=== PATIENT | male | born 1985 | race Hispanic/Latino ===

== ENCOUNTER 2019-04-16 12:22 | Emergency (ER) | payer BC ==
[~2019-04-16] VITALS: Ht 170.2 cm; Wt 78.0 kg
--- OUTSIDE RECORDS SUMMARY | 2019-04-16 12:26 | XMS REPORT | Continuity of Care Document ---
Author Author [facility] Organization [facility] Address Unknown Phone Unavailable Care Team Providers Care Public Health Training Assistant Name Role Phone Lela Dennison MD, Jaya SAMUELS Unavailable Insurance Providers Payer name Policy type / Coverage type Policy ID Covered alliance party ID Policy Rooney *SELF PAY* SLIDING FEE SCHEDULE - DISCOUNT Encounters Encounter Performer Location Date Lab Report Jaya Vogel Jr., MD [facility] Aug 26, 2013 Problems Problem Effective Dates Problem Status FATIGUE Aug 25, 2013 Active HEMATOMA Aug 25, 2013 Active Procedures Date Description Comments Aug 25, 2013 smoking status never smoker Vital Signs Date Description Test Result Aug 25, 2013 weight E&M - 3141-9 WEIGHT 163 lb Aug 25, 2013 height E&M - 8302-2 HEIGHT 67 in Aug 25, 2013 temperature E&M TEMPERATURE 97.7 deg f Aug 25, 2013 pulse rate E&M - 8867-4 PULSE RATE 57 /min Aug 25, 2013 blood pressure, systolic - 8480-6 BP SYSTOLIC 122 mm Hg Aug 25, 2013 blood pressure, diastolic - 8462-4 BP DIASTOLIC 74 mm Hg Results Date Description Test Name Value Reference Interpretation Status Aug 26, 2013 hemoglobin, blood HGB 14.9 g/dL 14.0-18.0 Aug 26, 2013 hematocrit, blood HCT 44.6 % 42.0-54.0 Aug 26, 2013 platelet count PLATELETS 217 K/CMM /mm3 133-450 Aug 26, 2013 hemoglobin, blood HGB 14.9 g/dL 14.0-18.0 Aug 26, 2013 hematocrit, blood HCT 44.6 % 42.0-54.0 Aug 26, 2013 platelet count PLATELETS 217 K/CMM /mm3 133-450 Aug 26, 2013 sodium, serum SODIUM 139 MEQ/L mmol/L 135-145 Aug 26, 2013 potassium, serum POTASSIUM 3.8 MEQ/L mmol/L 3.5-5.1 Aug 26, 2013 creatinine, serum CREATININE 0.9 mg/dL 0.5-1.4 Aug 26, 2013 urea nitrogen, blood BUN 13 mg/dL 7-Aug 26, 2013 urea nitrogen/creatinine ratio, serum BUN/CREAT 14 null 6-25 Aug 26, 2013 albumin, serum ALBUMIN 4.2 g/dL 3.5-5.0 Aug 26, 2013 calcium, serum CALCIUM 9.4 mg/dL 8.5-10.5 Aug 26, 2013 alanine aminotransferase (SGPT), serum SGPT (ALT) 35 U/L 0-65 Aug 26, 2013 aspartate aminotransferase (SGOT), serum SGOT (AST) 15 U/L 0-37 Aug 26, 2013 alkaline phosphatase, serum ALK PHOS 129 U/L 39-136 Aug 26, 2013 thyroid stimulating hormone, serum TSH 0.919 uIU/mL 0.360-3.740 Aug 26, 2013 sodium, serum SODIUM 139 MEQ/L mmol/L 135-145 Aug 26, 2013 potassium, serum POTASSIUM 3.8 MEQ/L mmol/L 3.5-5.1 Aug 26, 2013 creatinine, serum CREATININE 0.9 mg/dL 0.5-1.4 Aug 26, 2013 urea nitrogen, blood BUN 13 mg/dL -Aug 26, 2013 urea nitrogen/creatinine ratio, serum BUN/CREAT 14 null 6-25 Aug 26, 2013 albumin, serum ALBUMIN 4.2 g/dL 3.5-5.0 Aug 26, 2013 calcium, serum CALCIUM 9.4 mg/dL 8.5-10.5 Aug 26, 2013 alanine aminotransferase (SGPT), serum SGPT (ALT) 35 U/L 0-65 Aug 26, 2013 aspartate aminotransferase (SGOT), serum SGOT (AST) 15 U/L 0-37 Aug 26, 2013 alkaline phosphatase, serum ALK PHOS 129 U/L 39-136 Aug 26, 2013 thyroid stimulating hormone, serum TSH 0.919 uIU/mL 0.360-3.740
--- OUTSIDE RECORDS SUMMARY | 2019-04-16 12:26 | XMS REPORT | Continuity of Care Document ---
Author Author [facility] Organization [facility] Address Unknown Phone Unavailable Care Team Providers Care Hydroelectric Plant Mechanical Engineer Name Role Phone Lela Dennison MD, Jaya SAMUELS Unavailable Insurance Providers Payer name Policy type / Coverage type Policy ID Covered green party ID Policy Rooney *SELF PAY* SLIDING FEE SCHEDULE - DISCOUNT *SELF [place]* [place] *SELF PAY* SLIDING FEE SCHEDULE - DISCOUNT *SELF PAY* SLIDING FEE SCHEDULE - DISCOUNT *SELF PAY* SLIDING FEE SCHEDULE - DISCOUNT *SELF PAY* SLIDING FEE SCHEDULE - DISCOUNT *SELF PAY* SLIDING FEE SCHEDULE - DISCOUNT *SELF PAY* SLIDING FEE SCHEDULE - DISCOUNT Encounters Encounter Performer Location Date Office Visit Jaya Vogel Jr., MD [facility] Sep 07, 2014 Problems Problem Effective Dates Problem Status FATIGUE Aug 25, 2013 Active HEMATOMA Aug 25, 2013 Active DISORDERS OF BILIRUBIN EXCRETION Sep 01, 2013 Active FEVER UNSPECIFIED Sep 07, 2014 Active Procedures Date Description Comments Aug 25, [...] - 8462-4 BP DIASTOLIC 74 mm Hg Sep 07, 2014 weight E&M - 3141-9 WEIGHT 169 lb Sep 07, 2014 blood pressure, systolic - 8480-6 BP SYSTOLIC 119 mm Hg Sep 07, 2014 blood pressure, diastolic - 8462-4 BP DIASTOLIC 72 mm Hg Sep 07, 2014 temperature E&M TEMPERATURE 99.8 deg f Sep 07, 2014 pulse rate E&M - 8867-4 PULSE RATE 79 /min Results Date Description Test Name Value Reference [...]
--- OUTSIDE RECORDS SUMMARY | 2019-04-16 12:26 | XMS REPORT | Continuity of Care Document ---
Author Author [facility] Organization [facility] Address Unknown Phone Unavailable Care Team Providers Care Program Checker Name Role Phone Lela Dennison MD, Jaya SAMUELS Unavailable Insurance Providers Payer name Policy type / Coverage type Policy ID Covered democrat ID Policy Rooney *SELF PAY* SLIDING FEE [...] Date Office Visit Jaya Vogel Jr., MD [facility] Feb 08, 2015 Problems Problem Effective Dates Problem Status FATIGUE Aug 25, 2013 Active HEMATOMA Aug 25, 2013 Active DISORDERS OF BILIRUBIN EXCRETION Sep 01, 2013 Active FEVER UNSPECIFIED Sep 07, 2014 Inactive OTHER SPECIFIED VIRAL INFECTION IN CONDITIONS CLASSIFIED ELSEWHERE AND OF UNSPECIFIED SITE Feb 08, 2015 Active Procedures Date Description Comments Aug 25, 2013 smoking status never smoker Feb 08, 2015 smoking status Never smoker Medications Medication Instructions Start Date Status PREDNISONE 10 MG TABS 3 tablet daily Feb 08, 2015 Active Vital Signs Date Description Test Result Aug [...] E&M - 8867-4 PULSE RATE 79 /min Feb 08, 2015 weight E&M - 3141-9 WEIGHT 172 lb Feb 08, 2015 temperature E&M TEMPERATURE 100.7 deg f Feb 08, 2015 respiratory rate E&M - 9279-1 RESP RATE 16 /min Feb 08, 2015 blood pressure, systolic - 8480-6 BP SYSTOLIC 107 mm Hg Feb 08, 2015 blood pressure, diastolic - 8462-4 BP DIASTOLIC 75 mm Hg Feb 08, 2015 pulse rate E&M - 8867-4 PULSE RATE 83 /min Results Date Description Test Name Value [...] 2013 urea nitrogen, blood BUN 13 mg/dL 7-22 Aug 26, 2013 urea nitrogen/creatinine ratio, serum BUN/CREAT [...] 2013 urea nitrogen, blood BUN 13 mg/dL 7-22 Aug 26, 2013 urea nitrogen/creatinine ratio, serum BUN/CREAT [...]
--- OUTSIDE RECORDS SUMMARY | 2019-04-16 12:26 | XMS REPORT | Continuity of Care Document ---
Author Author [facility] Interface Address Unknown Phone Unavailable Problems Problem Status Onset Date Classification Date Reported Comments Source Discharge Diagnosis: Viral illness 11/13/2017 11/16/2017 [facility] CHILLS Active 11/11/2017 [facility] ABDOMINAL PAIN, RIGHT UPPER QUADRANT Active 06/15/2015 Condition 06/15/2015 [facility] Right upper quadrant pain<sup>6</sup> Active 06/15/2015 Problem 06/11/2018 Data migrated from [facility] on 07/05/15. [facility] ABNORMAL BLOOD CHEMISTRY, NOS Inactive 02/22/2015 Condition 06/15/2015 [facility] ELEVATED LIVER ENZYMES Active 02/22/2015 Condition 06/15/2015 [facility] FREQUENCY, URINARY Inactive 02/20/2015 Condition 06/15/2015 [facility] ABDOMINAL BLOATING Inactive 02/20/2015 Condition 06/15/2015 [facility] Abdominal bloating<sup>1</sup> Active 02/20/2015 Problem 06/11/2018 Data migrated from [facility] on 06/07/15. [facility] Finding of frequency of urination<sup>4</sup> Active 02/20/2015 Problem 06/11/2018 Data migrated from [facility] on 06/07/15. 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 [facility] FATIGUE Active 08/25/2013 Condition 06/15/2015 [facility] HEMATOMA Inactive 08/25/2013 Condition 06/15/2015 [facility] Fatigue<sup>3</sup> Active 08/25/2013 Problem 06/11/2018 Data migrated from [facility] on 05/02/15. [facility] Hematoma<sup>5</sup> Active 08/25/2013 Problem 06/11/2018 Data migrated from [facility] on 05/02/15. [facility] Final: Pain in thoracic spine 05/09/2017 [facility] Medications Medication Details Route Status Patient Instructions Ordering Provider Order Date Source albuterol 90 mcg/inh inhalation aerosol 2 puff, INHALATION, TID, # 51 mg, 2 Refill(s), Pharmacy: [id number] Active 03/05/2018 [facility] Alprazolam 0.5 MG Oral Tablet 0.5 mg=1 tab, PO, Daily, PRN Anxiety, X 30 day, # 24 tab, 0 Refill(s) No Longer Active 01/08/2018 [facility] Ketorolac 30 mg, Route: IVP, Drug form: INJ, ONCE, Dosing Weight 79.545, kg, Priority: STAT, Start date: 11/12/17 23:41:00 RESUME WRITER, Stop date: 11/12/17 23:41:00 RESUME WRITER No Longer Active 11/13/2017 [facility] RANITIDINE HCL 150 MG TABS 1 po BID x 10 days Active 06/15/2015 [facility] PREDNISONE 10 MG TABS 3 tablet daily No Longer Active 02/08/2015 [facility] PREDNISONE 10 MG TABS 3 tablet daily No Longer Active 02/08/2015 [facility] Allergies, Adverse Reactions, Alerts Substance Category Reaction Severity Reaction type Status Date Reported Comments Source Immunizations Immunization Date Given Site Status Last Updated Comments Source Results Order Name Results Value Reference Range Date Interpretation Comments Source RAPID Grp A Strep Scr Negative (11/13/17 1:26 AM) Negative 11/13/2017 [facility] VIRAL - SEROLOGY Influ B Negative (11/13/17 1:26 AM) Negative 11/13/2017 [facility] VIRAL - SEROLOGY Influ A Negative (11/13/17 1:26 AM) Negative 11/13/2017 [facility] CHEM PANEL Lipase Lvl 125 unit/L 73 - 393 11/13/2017 [facility] CHEM PANEL eGFR 107 mL/min/1.73m2 11/13/2017 Result Comment: The eGFR is calculated using the CKD-EPI formula. In most young, healthy individuals the eGFR will be >90 mL/min/1.73m2. The eGFR declines with age. An eGFR of 60-89 may be normal in some populations, particularly the elderly, for whom the CKD-EPI formula has not been extensively validated. Use of the eGFR is not recommended in the following populations: Individuals with unstable creatinine concentrations, including patients and those with serious co-morbid conditions. Patients with extremes in muscle mass or diet. The data above are obtained from the National Kidney Disease Education Program (NKDEP) which additionally recommends that when the eGFR is used in patients with extremes of body mass index for purposes of drug dosing, the eGFR should be multiplied by the estimated BMI. [facility] CHEM PANEL ALT 72 unit/L 0 - 65 11/13/2017 [facility] CHEM PANEL A/G Ratio 1.2 0.7 - 1.6 11/13/2017 [facility] CHEM PANEL Alk Phos 110 unit/L 39 - 136 11/13/2017 [facility] CHEM PANEL AST 30 unit/L 0 - 37 11/13/2017 [facility] CHEM PANEL Bili Total 1.2 mg/dL 0.2 - 1.3 11/13/2017 [facility] CHEM PANEL Chloride Lvl 103 meq/L 95 - 109 11/13/2017 [facility] CHEM PANEL Potassium Lvl 3.3 meq/L 3.5 - 5.1 11/13/2017 [facility] CHEM PANEL Sodium Lvl 140 meq/L 135 - 145 11/13/2017 [facility] CHEM PANEL Creatinine Lvl 0.93 mg/dL 0.50 - 1.40 11/13/2017 [facility] CHEM PANEL CO2 29 meq/L 24 - 32 11/13/2017 [facility] CHEM PANEL Calcium Lvl 9.3 mg/dL 8.5 - 10.5 11/13/2017 [facility] CHEM PANEL AGAP 11.3 meq/L 10.0 - 20.0 11/13/2017 [facility] CHEM PANEL Albumin Lvl 4.3 g/dL 3.5 - 5.0 11/13/2017 [facility] CHEM PANEL B/C Ratio 15 6 - 25 11/13/2017 [facility] CHEM PANEL Total Protein 7.9 g/dL 6.4 - 8.4 11/13/2017 [facility] CHEM PANEL Globulin 3.6 g/dL 2.7 - 4.2 11/13/2017 [facility] CHEM PANEL Glucose Lvl 106 mg/dL 70 - 99 11/13/2017 [facility] CHEM PANEL BUN 14 mg/dL 7 - 22 11/13/2017 [facility] HEMATOLOGY Platelet 226 K/CMM 133 - 450 11/13/2017 [facility] HEMATOLOGY RDW 12.8 % 11.5 - 14.5 11/13/2017 [facility] MCHC 34.1 g/dL 32.0 - 36.0 11/13/2017 [facility] MCH 30.5 pg 27.0 - 31.0 11/13/2017 [facility] Hct 48.0 % 42.0 - 54.0 11/13/2017 [facility] MCV 89.3 fL 80.0 - 94.0 11/13/2017 [facility] Hgb 16.4 g/dL 14.0 - 18.0 11/13/2017 [facility] RBC 5.37 M/CMM 4.70 - 6.10 11/13/2017 [facility] WBC 9.6 K/CMM 3.7 - 10.4 11/13/2017 [facility] MPV 9.7 fL 7.4 - 10.4 11/13/2017 [facility] HEMATOLOGY Segs 54.2 % 45.0 - 75.0 11/13/2017 [facility] Lymphocytes 36.8 % 20.0 - 40.0 11/13/2017 [facility] HEMATOLOGY Basophils # 0.0 K/CMM 0.0 - 0.2 11/13/2017 [facility] HEMATOLOGY Monocytes # 0.7 K/CMM 0.0 - 0.8 11/13/2017 [facility] HEMATOLOGY Eosinophils # 0.1 K/CMM 0.0 - 0.5 11/13/2017 [facility] Lymphocytes # 3.6 K/CMM 1.0 - 5.5 11/13/2017 [facility] Segs-Bands # 5.2 K/CMM 1.5 - 8.1 11/13/2017 [facility] HEMATOLOGY Basophils 0.3 % 0.0 - 1.0 11/13/2017 [facility] Monocytes 7.3 % 2.0 - 12.0 11/13/2017 [facility] Eosinophils 1.4 % 0.0 - 4.0 11/13/2017 [facility] URINE AND STOOL UA Sq Epi None Seen 11/13/2017 [facility] URINE AND STOOL UA Color Yellow 11/13/2017 [facility] URINE AND STOOL UA Protein Negative mg/dL Negative mg/dL 11/13/2017 [facility] URINE AND STOOL UA Spec Grav 1.021 <=1.030 11/13/2017 [facility] URINE AND STOOL UA pH 6.0 5.0 - 8.0 11/13/2017 [facility] URINE AND STOOL UA Mucus Few /LPF None Seen /LPF 11/13/2017 [facility] URINE AND STOOL UA Amorph Kylie Few /HPF None Seen /HPF 11/13/2017 [facility] URINE AND STOOL UA Leuk Est Negative (11/12/17 10:40 PM) Negative 11/13/2017 [facility] URINE AND STOOL UA Turbidity Moderate *ABN* (11/12/17 10:40 PM) Clear 11/13/2017 [facility] URINE AND STOOL UA Blood Negative (11/12/17 10:40 PM) Negative 11/13/2017 [facility] URINE AND STOOL UA Nitrite Negative (11/12/17 10:40 PM) Negative 11/13/2017 [facility] URINE AND STOOL UA Bili Negative *NA* (11/12/17 10:40 PM) Negative 11/13/2017 [facility] URINE AND STOOL UA Urobilinogen 2.0 mg/dL 0.1 - 1.0 11/13/2017 [facility] URINE AND STOOL UA Ketones Negative mg/dL Negative mg/dL 11/13/2017 [facility] URINE AND STOOL UA Glucose Negative mg/dL Negative mg/dL 11/13/2017 [facility] Chemistry SODIUM 140 MEQ/L mmol/L 135 - 145 06/15/2015 [facility] Chemistry POTASSIUM 3.9 MEQ/L mmol/L 3.5 - 5.1 06/15/2015 [facility] Chemistry CREATININE 0.9 mg/dL 0.5 - 1.4 06/15/2015 [facility] Chemistry BUN 11 mg/dL 7 - 22 06/15/2015 [facility] Chemistry BUN/CREAT 12 6 - 25 06/15/2015 [facility] Chemistry ALBUMIN 4.0 g/dL 3.5 - 5.0 06/15/2015 [facility] Chemistry CALCIUM 9.3 mg/dL 8.5 - 10.5 06/15/2015 [facility] Chemistry SGPT (ALT) 46 U/L 0 - 65 06/15/2015 Medical [facility] Chemistry SGOT (AST) 20 U/L 0 - 37 06/15/2015 [facility] Chemistry ALK PHOS 91 U/L 39 - 136 06/15/2015 [facility] Chemistry SODIUM 140 MEQ/L mmol/L 135 - 145 06/15/2015 [facility] Chemistry POTASSIUM 3.9 MEQ/L mmol/L 3.5 - 5.1 06/15/2015 [facility] Chemistry CREATININE 0.9 mg/dL 0.5 - 1.4 06/15/2015 [facility] Chemistry BUN 11 mg/dL 7 - 22 06/15/2015 [facility] Chemistry BUN/CREAT 12 6 - 25 06/15/2015 [facility] Chemistry ALBUMIN 4.0 g/dL 3.5 - 5.0 06/15/2015 [facility] Chemistry CALCIUM 9.3 mg/dL 8.5 - 10.5 06/15/2015 [facility] Chemistry SGPT (ALT) 46 U/L 0 - 65 06/15/2015 [facility] Chemistry SGOT (AST) 20 U/L 0 - 37 06/15/2015 [facility] Chemistry ALK PHOS 91 U/L 39 - 136 06/15/2015 [facility] Chemistry SODIUM 140 MEQ/L mmol/L 135 - 145 03/03/2015 [facility] Chemistry POTASSIUM 4.2 MEQ/L mmol/L 3.5 - 5.1 03/03/2015 [facility] Chemistry CREATININE 1.2 mg/dL 0.5 - 1.4 03/03/2015 [facility] Chemistry BUN 12 mg/dL 7 - 22 03/03/2015 [facility] Chemistry BUN/CREAT 10 6 - 25 03/03/2015 [facility] Chemistry ALBUMIN 3.7 g/dL 3.5 - 5.0 03/03/2015 [facility] Chemistry CALCIUM 8.9 mg/dL 8.5 - 10.5 03/03/2015 [facility] Chemistry SGPT (ALT) 105 U/L 0 - 65 03/03/2015 [facility] Chemistry SGOT (AST) 41 U/L 0 - 37 03/03/2015 [facility] Chemistry ALK PHOS 218 U/L 39 - 136 03/03/2015 [facility] Chemistry SODIUM 140 MEQ/L mmol/L 135 - 145 03/03/2015 [facility] Chemistry POTASSIUM 4.2 MEQ/L mmol/L 3.5 - 5.1 03/03/2015 [facility] Chemistry CREATININE 1.2 mg/dL 0.5 - 1.4 03/03/2015 [facility] Chemistry BUN 12 mg/dL 7 - 22 03/03/2015 [facility] Chemistry BUN/CREAT 10 6 - 25 03/03/2015 [facility] Chemistry ALBUMIN 3.7 g/dL 3.5 - 5.0 03/03/2015 [facility] Chemistry CALCIUM 8.9 mg/dL 8.5 - 10.5 03/03/2015 [facility] Chemistry SGPT (ALT) 105 U/L 0 - 65 03/03/2015 [facility] Chemistry SGOT (AST) 41 U/L 0 - 37 03/03/2015 [facility] Chemistry ALK PHOS 218 U/L 39 - 136 03/03/2015 [facility] Chemistry SODIUM 138 MEQ/L mmol/L 135 - 145 02/24/2015 [facility] Chemistry POTASSIUM 4.6 MEQ/L mmol/L 3.5 - 5.1 02/24/2015 [facility] Chemistry CREATININE 0.9 mg/dL 0.5 - 1.4 02/24/2015 [facility] Chemistry BUN 10 mg/dL 7 - 02/24/2015 [facility] Chemistry BUN/CREAT 11 6 - 02/24/2015 [facility] Chemistry ALBUMIN 3.6 g/dL 3.5 - 5.0 02/24/2015 [facility] Chemistry CALCIUM 9.2 mg/dL 8.5 - 10.5 02/24/2015 [facility] Chemistry SGPT (ALT) 241 U/L 0 - 65 02/24/2015 [facility] Chemistry SGOT (AST) 89 U/L 0 - 37 02/24/2015 [facility] Chemistry ALK PHOS 457 U/L 39 - 136 02/24/2015 [facility] Chemistry SODIUM 138 MEQ/L mmol/L 135 - 145 02/24/2015 [facility] Chemistry POTASSIUM 4.6 MEQ/L mmol/L 3.5 - 5.1 02/24/2015 [facility] Chemistry CREATININE 0.9 mg/dL 0.5 - 1.4 02/24/2015 [facility] Chemistry BUN 10 mg/dL 7 - 02/24/2015 [facility] Chemistry BUN/CREAT 11 6 - 25 02/24/2015 [facility] Chemistry ALBUMIN 3.6 g/dL 3.5 - 5.0 02/24/2015 [facility] Chemistry CALCIUM 9.2 mg/dL 8.5 - 10.5 02/24/2015 [facility] Chemistry SGPT (ALT) 241 U/L 0 - 65 02/24/2015 [facility] Chemistry SGOT (AST) 89 U/L 0 - 37 02/24/2015 [facility] Chemistry ALK PHOS 457 U/L 39 - 136 02/24/2015 [facility] Hematology HGB 14.3 g/dL 14.0 - 18.0 02/24/2015 Medical [facility] Hematology HCT 42.4 % 42.0 - 54.0 02/24/2015 Medical [facility] Hematology PLATELETS 165 K/CMM /mm3 133 - 450 02/24/2015 [facility] Chemistry AMYLASE 50 U/L 25 - 115 02/20/2015 [facility] Chemistry SODIUM 136 MEQ/L mmol/L 135 - 145 02/20/2015 [facility] Chemistry POTASSIUM 4.1 MEQ/L mmol/L 3.5 - 5.1 02/20/2015 [facility] Chemistry AMYLASE 50 U/L 25 - 115 02/20/2015 Medical [facility] Chemistry SODIUM 136 MEQ/L mmol/L 135 - 145 02/20/2015 [facility] Chemistry POTASSIUM 4.1 MEQ/L mmol/L 3.5 - 5.1 02/20/2015 [facility] Chemistry CREATININE 1.1 mg/dL 0.5 - 1.4 02/20/2015 [facility] Chemistry BUN 10 mg/dL 7 - 22 02/20/2015 [facility] Chemistry BUN/CREAT 9 6 - 25 02/20/2015 [facility] Chemistry ALBUMIN 3.4 g/dL 3.5 - 5.0 02/20/2015 [facility] Chemistry CALCIUM 9.1 mg/dL 8.5 - 10.5 02/20/2015 [facility] Chemistry SGPT (ALT) 373 U/L 0 - 65 02/20/2015 [facility] Chemistry AMYLASE 50 U/L 25 - 115 02/20/2015 [facility] Chemistry SODIUM 136 MEQ/L mmol/L 135 - 145 02/20/2015 [facility] Chemistry POTASSIUM 4.1 MEQ/L mmol/L 3.5 - 5.1 02/20/2015 [facility] Chemistry AMYLASE 50 U/L 25 - 115 02/20/2015 [facility] Chemistry SODIUM 136 MEQ/L mmol/L 135 - 145 02/20/2015 [facility] Chemistry POTASSIUM 4.1 MEQ/L mmol/L 3.5 - 5.1 02/20/2015 [facility] Chemistry CREATININE 1.1 mg/dL 0.5 - 1.4 02/20/2015 [facility] Chemistry BUN 10 mg/dL 7 - 22 02/20/2015 [facility] Chemistry BUN/CREAT 9 6 - 25 02/20/2015 [facility] Chemistry ALBUMIN 3.4 g/dL 3.5 - 5.0 02/20/2015 [facility] Chemistry CALCIUM 9.1 mg/dL 8.5 - 10.5 02/20/2015 [facility] Chemistry SGPT (ALT) 373 U/L 0 - 65 02/20/2015 [facility] Chemistry SGOT (AST) 142 U/L 0 - 37 02/20/2015 [facility] Chemistry ALK PHOS 501 U/L 39 - 136 02/20/2015 [facility] Chemistry TSH 2.010 uIU/mL 0.360 - 3.740 02/20/2015 [facility] Chemistry SGOT (AST) 142 U/L 0 - 37 02/20/2015 [facility] Chemistry AMYLASE 50 U/L 25 - 115 02/20/2015 [facility] Chemistry SODIUM 136 MEQ/L mmol/L 135 - 145 02/20/2015 [facility] Chemistry POTASSIUM 4.1 MEQ/L mmol/L 3.5 - 5.1 02/20/2015 [facility] Chemistry CREATININE 1.1 mg/dL 0.5 - 1.4 02/20/2015 [facility] Chemistry BUN 10 mg/dL 7 - 02/20/2015 [facility] Chemistry BUN/CREAT 9 6 - 25 02/20/2015 [facility] Chemistry ALBUMIN 3.4 g/dL 3.5 - 5.0 02/20/2015 [facility] Chemistry CALCIUM 9.1 mg/dL 8.5 - 10.5 02/20/2015 [facility] Chemistry SGPT (ALT) 373 U/L 0 - 65 02/20/2015 [facility] Chemistry SGOT (AST) 142 U/L 0 - 37 02/20/2015 [facility] Chemistry ALK PHOS 501 U/L 39 - 136 02/20/2015 [facility] Chemistry TSH 2.010 uIU/mL 0.360 - 3.740 02/20/2015 [facility] Hematology HGB 14.5 g/dL 14.0 - 18.0 02/20/2015 [facility] Hematology HCT 43.0 % 42.0 - 54.0 02/20/2015 [facility] Hematology PLATELETS 147 K/CMM /mm3 133 - 450 02/20/2015 [facility] Hematology HGB 14.5 g/dL 14.0 - 18.0 02/20/2015 [facility] Hematology HCT 43.0 % 42.0 - 54.0 02/20/2015 [facility] Hematology PLATELETS 147 K/CMM /mm3 133 - 450 02/20/2015 [facility] Urinalysis UA COLOR Yellow 02/20/2015 [facility] Urinalysis BACTERIA URN Occasional 02/20/2015 [facility] Urinalysis UA COLOR Yellow 02/20/2015 [facility] Urinalysis UA COLOR Yellow 02/20/2015 [facility] Urinalysis BACTERIA URN Occasional 02/20/2015 [facility] Urinalysis UA COLOR Yellow 02/20/2015 [facility] Urinalysis BACTERIA URN Occasional 02/20/2015 [facility] Chemistry SODIUM 139 MEQ/L mmol/L 135 - 145 08/26/2013 [facility] Chemistry POTASSIUM 3.8 MEQ/L mmol/L 3.5 - 5.1 08/26/2013 [facility] Chemistry CREATININE 0.9 mg/dL 0.5 - 1.4 08/26/2013 [facility] Chemistry BUN 13 mg/dL 7 - 22 08/26/2013 [facility] Chemistry BUN/CREAT 14 6 - 25 08/26/2013 [facility] Chemistry ALBUMIN 4.2 g/dL 3.5 - 5.0 08/26/2013 [facility] Chemistry CALCIUM 9.4 mg/dL 8.5 - 10.5 08/26/2013 [facility] Chemistry SGPT (ALT) 35 U/L 0 - 65 08/26/2013 [facility] Chemistry SGOT (AST) 15 U/L 0 - 37 08/26/2013 [facility] Chemistry ALK PHOS 129 U/L 39 - 136 08/26/2013 [facility] Chemistry SODIUM 139 MEQ/L mmol/L 135 - 145 08/26/2013 [facility] Chemistry POTASSIUM 3.8 MEQ/L mmol/L 3.5 - 5.1 08/26/2013 [facility] Chemistry CREATININE 0.9 mg/dL 0.5 - 1.4 08/26/2013 [facility] Chemistry SODIUM 139 MEQ/L mmol/L 135 - 145 08/26/2013 [facility] Chemistry POTASSIUM 3.8 MEQ/L mmol/L 3.5 - 5.1 08/26/2013 [facility] Chemistry CREATININE 0.9 mg/dL 0.5 - 1.4 08/26/2013 [facility] Chemistry BUN 13 mg/dL 7 - 08/26/2013 [facility] Chemistry BUN/CREAT 14 6 - 08/26/2013 [facility] Chemistry ALBUMIN 4.2 g/dL 3.5 - 5.0 08/26/2013 [facility] Chemistry CALCIUM 9.4 mg/dL 8.5 - 10.5 08/26/2013 [facility] Chemistry SGPT (ALT) 35 U/L 0 - 65 08/26/2013 [facility] Chemistry SGOT (AST) 15 U/L 0 - 37 08/26/2013 [facility] Chemistry SODIUM 139 MEQ/L mmol/L 135 - 145 08/26/2013 [facility] Chemistry POTASSIUM 3.8 MEQ/L mmol/L 3.5 - 5.1 08/26/2013 [facility] Chemistry CREATININE 0.9 mg/dL 0.5 - 1.4 08/26/2013 [facility] Chemistry SODIUM 139 MEQ/L mmol/L 135 - 145 08/26/2013 [facility] Chemistry POTASSIUM 3.8 MEQ/L mmol/L 3.5 - 5.1 08/26/2013 [facility] Chemistry CREATININE 0.9 mg/dL 0.5 - 1.4 08/26/2013 [facility] Chemistry BUN 13 mg/dL 7 - 08/26/2013 [facility] Chemistry BUN/CREAT 14 6 - 25 08/26/2013 [facility] Chemistry ALBUMIN 4.2 g/dL 3.5 - 5.0 08/26/2013 [facility] Chemistry CALCIUM 9.4 mg/dL 8.5 - 10.5 08/26/2013 [facility] Chemistry SGPT (ALT) 35 U/L 0 - 65 08/26/2013 [facility] Chemistry ALK PHOS 129 U/L 39 - 136 08/26/2013 [facility] Chemistry TSH 0.919 uIU/mL 0.360 - 3.740 08/26/2013 [facility] Chemistry SGOT (AST) 15 U/L 0 - 37 08/26/2013 [facility] Chemistry ALK PHOS 129 U/L 39 - 136 08/26/2013 [facility] Chemistry SODIUM 139 MEQ/L mmol/L 135 - 145 08/26/2013 [facility] Chemistry POTASSIUM 3.8 MEQ/L mmol/L 3.5 - 5.1 08/26/2013 [facility] Chemistry CREATININE 0.9 mg/dL 0.5 - 1.4 08/26/2013 [facility] Chemistry BUN 13 mg/dL 7 - 22 08/26/2013 [facility] Chemistry BUN/CREAT 14 6 - 25 08/26/2013 [facility] Chemistry ALBUMIN 4.2 g/dL 3.5 - 5.0 08/26/2013 [facility] Chemistry CALCIUM 9.4 mg/dL 8.5 - 10.5 08/26/2013 [facility] Chemistry SGPT (ALT) 35 U/L 0 - 65 08/26/2013 [facility] Chemistry SGOT (AST) 15 U/L 0 - 37 08/26/2013 [facility] Chemistry ALK PHOS 129 U/L 39 - 136 08/26/2013 [facility] Chemistry TSH 0.919 uIU/mL 0.360 - 3.740 08/26/2013 [facility] Hematology HGB 14.9 g/dL 14.0 - 18.0 08/26/2013 [facility] Hematology HCT 44.6 % 42.0 - 54.0 08/26/2013 [facility] Hematology PLATELETS 217 K/CMM /mm3 133 - 450 08/26/2013 [facility] Hematology HGB 14.9 g/dL 14.0 - 18.0 08/26/2013 [facility] Hematology HCT 44.6 % 42.0 - 54.0 08/26/2013 [facility] Hematology PLATELETS 217 K/CMM /mm3 133 - 450 08/26/2013 [facility] Hematology HGB 14.9 g/dL 14.0 - 18.0 08/26/2013 [facility] Hematology HCT 44.6 % 42.0 - 54.0 08/26/2013 [facility] Hematology PLATELETS 217 K/CMM /mm3 133 - 450 08/26/2013 [facility] Vital Signs Vital Sign Value Date Comments Source Weight 76.818 03/05/2018 [facility] Height 170.18 cm 03/05/2018 [facility] BMI Calculated 26.52 03/05/2018 [facility] Temperature Oral (F) 98 F 03/05/2018 [facility] Systolic (mm Hg) 126 03/05/2018 [facility] Diastolic (mm Hg) 83 03/05/2018 [facility] Weight 77.727 01/08/2018 [facility] Temperature Oral (F) 98.1 F 01/08/2018 [facility] Systolic (mm Hg) 124 01/08/2018 [facility] Diastolic (mm Hg) 75 01/08/2018 [facility] Temperature Oral (F) 97.8 F 11/13/2017 [facility] Heart Rate 56 11/13/2017 [facility] Respitory Rate 16 11/13/2017 [facility] Systolic (mm Hg) 136 11/13/2017 [facility] Diastolic (mm Hg) 86 11/13/2017 [facility] Temperature Oral (F) 98.1 F 11/13/2017 [facility] Respitory Rate 20 11/13/2017 [facility] Height 170.18 cm 11/13/2017 [facility] BMI Calculated 27.47 11/13/2017 [facility] Weight 79.545 11/13/2017 [facility] Systolic (mm Hg) 132 11/13/2017 [facility] Diastolic (mm Hg) 89 11/13/2017 [facility] Heart Rate 70 11/13/2017 [facility] Height 67 06/15/2015 [facility] Weight 162.8 06/15/2015 [facility] Temperature Oral (F) 98.1 F 06/15/2015 [facility] Systolic (mm Hg) 112 06/15/2015 [facility] Diastolic (mm Hg) 74 06/15/2015 [facility] Heart Rate 70 06/15/2015 [facility] Temperature Oral (F) 97.7 F 03/01/2015 [facility] Weight 165 03/01/2015 [facility] Systolic (mm Hg) 115 03/01/2015 [facility] Diastolic (mm Hg) 76 03/01/2015 [facility] Heart Rate 70 03/01/2015 [facility] Height 67 03/01/2015 [facility] Weight 171 02/20/2015 [facility] Systolic (mm Hg) 128 02/20/2015 [facility] Diastolic (mm Hg) 63 02/20/2015 [facility] Heart Rate 81 02/20/2015 [facility] Respitory Rate 16 02/20/2015 [facility] Temperature Oral (F) 98.6 F 02/20/2015 [facility] Weight 172 02/08/2015 [facility] Temperature Oral (F) 100.7 F 02/08/2015 [facility] Respitory Rate 16 02/08/2015 [facility] Systolic (mm Hg) 107 02/08/2015 [facility] Diastolic (mm Hg) 75 02/08/2015 [facility] Heart Rate 83 02/08/2015 [facility] Weight 169 09/07/2014 [facility] Systolic (mm Hg) 119 09/07/2014 [facility] Diastolic (mm Hg) 72 09/07/2014 [facility] Temperature Oral (F) 99.8 F 09/07/2014 [facility] Heart Rate 79 09/07/2014 [facility] Weight 163 08/25/2013 [facility] Height 67 08/25/2013 [facility] Temperature Oral (F) 97.7 F 08/25/2013 [facility] Heart Rate 57 08/25/2013 Medical Group Systolic (mm Hg) 122 08/25/2013 Medical Group Diastolic (mm Hg) 74 08/25/2013 Medical Group Encounters Location Location Details Encounter Type Encounter Number Reason For Visit Attending Provider ADM Date DC Date Status Source [facility] Lab Report [id number] Jaya Vogel Jr., MD 08/26/2013 08/26/2013 Medical [facility] Office Visit [id number] Jaya Vogel Jr., MD 09/07/2014 09/07/2014 [facility] Office Visit [id number] Jaya Vogel Jr., MD 02/08/2015 02/08/2015 [facility] Lab Report [id number] Jaya Vogel Jr., MD 02/20/2015 02/20/2015 [facility] Office Visit [id number] Jaya Vogel Jr., MD 02/20/2015 02/20/2015 [facility] Lab Report [id number] Jaya Vogel Jr., MD 02/24/2015 02/24/2015 [facility] Office Visit [id number] Jaya Vogel Jr., MD 03/01/2015 03/01/2015 [facility] Lab Report [id number] Jaya Vogel Jr., MD 03/03/2015 03/03/2015 Medical [facility] Office Visit [id number] Jaya Vogel Jr., MD 06/15/2015 06/15/2015 Medical Group [facility] [place] Lab Report [id number] Jaya Vogel Jr., MD 06/15/2015 06/15/2015 Medical [facility] Outpatient [id number] JAYA SUSTACHE 06/15/2015 Active [facility] Outpatient [id number] JAYA SUSTACHE 08/03/2015 Active [facility] Outpatient [id number] Jaya Sustache 08/04/2015 Active [facility] Outpatient [id number] JEANNETTE BOCANEGRA 11/22/2015 Active [facility] Outpatient [id number] JEANNETTE BOCANEGRA 12/19/2015 Active [facility] Outpatient [id number] JAYA SUSTACHE 01/26/2016 Active [facility] Outpatient [id number] JAYA SUSTACHE 08/07/2016 Active [facility] Outpatient [id number] JAYA SUSTACHE 09/05/2016 Active [facility] Outpatient [id number] JAYA SUSTACHE 10/02/2016 Active [facility] Outpatient [id number] Jaya Sustache 10/02/2016 Active [facility] Outpatient [id number] JAYA SUSTACHE 04/04/2017 Active [facility] Outpatient [id number] JAYA SUSTACHE 05/07/2017 Active [facility] Outpatient [id number] Jaya Sustache 05/07/2017 Active [facility] Outpatient [id number] Jaya Sustache 05/07/2017 05/08/[address] [facility] Emergency [id number] Mike Ndum 11/13/2017 11/13/2017 [facility] Outpatient [id number] JAYA SUSTACHE 01/08/2018 Active [facility] [place] Outpatient [id number] Jaya Sustache Jr 01/08/2018 01/09/2018 [facility] [place] Phone Message [id number] 03/02/2018 03/04/2018 Medical [facility] Outpatient [id number] JAYA SUSTACHE 03/05/2018 Active [facility] [place] Outpatient [id number] Jaya Vogel Jr 03/05/2018 03/06/2018 Medical Group Procedures Procedure Code Date Perfomer Comments Source Radiologic examination, foot; 2 views [id number] 10/02/2016 [facility] Appendectomy [id number] Medical Group Appendectomy [id number] [facility]
--- OUTSIDE RECORDS SUMMARY | 2019-04-16 12:26 | XMS REPORT | Continuity of Care Document ---
Author Author [facility] Organization [facility] Address Unknown Phone Unavailable Care Team Providers Care Continuous Washer Operator Name Role Phone Lela Dennison MD, Jaya SAMUELS Unavailable Insurance Providers Payer name Policy type / Coverage type Policy ID Covered libertarian ID Policy Rooney *SELF PAY* SLIDING FEE [...] Date Lab Report Jaya Vogel Jr., MD [facility] Feb 20, 2015 Problems Problem Effective Dates Problem Status FATIGUE Aug 25, 2013 Active HEMATOMA Aug 25, 2013 Inactive DISORDERS OF BILIRUBIN EXCRETION Sep 01, 2013 Active FEVER UNSPECIFIED Sep 07, 2014 Inactive OTHER SPECIFIED VIRAL INFECTION IN CONDITIONS CLASSIFIED ELSEWHERE AND OF UNSPECIFIED SITE Feb 08, 2015 Inactive FREQUENCY, URINARY Feb 20, 2015 Active ABDOMINAL BLOATING Feb 20, 2015 Active ABNORMAL BLOOD CHEMISTRY, NOS Feb 22, 2015 Active ELEVATED LIVER ENZYMES Feb 22, 2015 Active Procedures Date Description Comments Aug 25, 2013 smoking status never smoker Feb 08, 2015 smoking status Never smoker Medications Medication Instructions Start Date Status PREDNISONE 10 MG TABS 3 tablet daily Feb 08, 2015 Inactive Vital Signs Date Description Test Result Aug [...] E&M - 8867-4 PULSE RATE 83 /min Feb 20, 2015 weight E&M - 3141-9 WEIGHT 171 lb Feb 20, 2015 blood pressure, systolic - 8480-6 BP SYSTOLIC 128 mm Hg Feb 20, 2015 blood pressure, diastolic - 8462-4 BP DIASTOLIC 63 mm Hg Feb 20, 2015 pulse rate E&M - 8867-4 PULSE RATE 81 /min Feb 20, 2015 respiratory rate E&M - 9279-1 RESP RATE 16 /min Feb 20, 2015 temperature E&M TEMPERATURE 98.6 deg f Results Date Description Test Name Value Reference Interpretation Status Aug 26, 2013 hemoglobin, blood HGB 14.9 g/dL 14.0-18.0 Aug 26, 2013 hematocrit, blood HCT 44.6 % 42.0-54.0 Aug 26, 2013 platelet count PLATELETS 217 K/CMM /mm3 133-450 Feb 20, 2015 hemoglobin, blood HGB 14.5 g/dL 14.0-18.0 Feb 20, 2015 hematocrit, blood HCT 43.0 % 42.0-54.0 Feb 20, 2015 platelet count PLATELETS 147 K/CMM /mm3 133-450 Aug 26, 2013 hemoglobin, blood HGB 14.9 g/dL 14.0-18.0 Aug 26, 2013 hematocrit, blood HCT 44.6 % 42.0-54.0 Aug 26, 2013 platelet count PLATELETS 217 K/CMM /mm3 133-450 Feb 20, 2015 hemoglobin, blood HGB 14.5 g/dL 14.0-18.0 Feb 20, 2015 hematocrit, blood HCT 43.0 % 42.0-54.0 Feb 20, 2015 platelet count PLATELETS 147 K/CMM /mm3 133-450 Feb 20, 2015 urine color UA COLOR Yellow null Yellow Feb 20, 2015 bacteria, urine microscopy BACTERIA URN Occasional null None Seen Feb 20, 2015 urine color UA COLOR Yellow null Yellow Feb 20, 2015 bacteria, urine microscopy BACTERIA URN Occasional null None Seen Aug 26, 2013 sodium, serum SODIUM 139 [...] stimulating hormone, serum TSH 0.919 uIU/mL 0.360-3.740 Feb 20, 2015 amylase, serum AMYLASE 50 U/L 25-115 Feb 20, 2015 sodium, serum SODIUM 136 MEQ/L mmol/L 135-145 Feb 20, 2015 potassium, serum POTASSIUM 4.1 MEQ/L mmol/L 3.5-5.1 Feb 20, 2015 creatinine, serum CREATININE 1.1 mg/dL 0.5-1.4 Feb 20, 2015 urea nitrogen, blood BUN 10 mg/dL 7-Feb 20, 2015 urea nitrogen/creatinine ratio, serum BUN/CREAT 9 null 6-25 Feb 20, 2015 albumin, serum ALBUMIN 3.4 g/dL 3.5-5.0 Low Feb 20, 2015 calcium, serum CALCIUM 9.1 mg/dL 8.5-10.5 Feb 20, 2015 alanine aminotransferase (SGPT), serum SGPT (ALT) 373 U/L 0-65 High Feb 20, 2015 aspartate aminotransferase (SGOT), serum SGOT (AST) 142 U/L 0-37 High Feb 20, 2015 alkaline phosphatase, serum ALK PHOS 501 U/L 39-136 High Feb 20, 2015 thyroid stimulating hormone, serum TSH 2.010 uIU/mL 0.360-3.740 Aug 26, 2013 sodium, serum [...] stimulating hormone, serum TSH 0.919 uIU/mL 0.360-3.740 Feb 20, 2015 amylase, serum AMYLASE 50 U/L 25-115 Feb 20, 2015 sodium, serum SODIUM 136 MEQ/L mmol/L 135-145 Feb 20, 2015 potassium, serum POTASSIUM 4.1 MEQ/L mmol/L 3.5-5.1 Feb 20, 2015 creatinine, serum CREATININE 1.1 mg/dL 0.5-1.4 Feb 20, 2015 urea nitrogen, blood BUN 10 mg/dL 7-22 Feb 20, 2015 urea nitrogen/creatinine ratio, serum BUN/CREAT 9 null 6-25 Feb 20, 2015 albumin, serum ALBUMIN 3.4 g/dL 3.5-5.0 Low Feb 20, 2015 calcium, serum CALCIUM 9.1 mg/dL 8.5-10.5 Feb 20, 2015 alanine aminotransferase (SGPT), serum SGPT (ALT) 373 U/L 0-65 High Feb 20, 2015 aspartate aminotransferase (SGOT), serum SGOT (AST) 142 U/L 0-37 High Feb 20, 2015 alkaline phosphatase, serum ALK PHOS 501 U/L 39-136 High Feb 20, 2015 thyroid stimulating hormone, serum TSH 2.010 uIU/mL 0.360-3.740
--- OUTSIDE RECORDS SUMMARY | 2019-04-16 12:26 | XMS REPORT | Continuity of Care Document ---
Author Author [facility] Organization [facility] Address Unknown Phone Unavailable Care Team Providers Care Recorder Helper Gravity Prospecting Name Role Phone Lela Dennison MD, Jaya [...] *SELF PAY* SLIDING FEE SCHEDULE - DISCOUNT [place] *SELF PAY* SLIDING FEE SCHEDULE - DISCOUNT *SELF PAY* SLIDING FEE SCHEDULE - DISCOUNT *SELF PAY* SLIDING FEE SCHEDULE - DISCOUNT *SELF PAY* SLIDING FEE SCHEDULE - DISCOUNT *SELF PAY* SLIDING FEE SCHEDULE - DISCOUNT Encounters Encounter Performer Location Date Office Visit Jaya Vogel Jr., MD [facility] Jun 15, 2015 Problems Problem Effective Dates Problem Status FATIGUE Aug 25, 2013 Active HEMATOMA Aug 25, 2013 Inactive DISORDERS OF BILIRUBIN EXCRETION Sep 01, 2013 Active FEVER UNSPECIFIED Sep 07, 2014 Inactive OTHER SPECIFIED VIRAL INFECTION IN CONDITIONS CLASSIFIED ELSEWHERE AND OF UNSPECIFIED SITE Feb 08, 2015 Inactive FREQUENCY, URINARY Feb 20, 2015 Inactive ABDOMINAL BLOATING Feb 20, 2015 Inactive ABNORMAL BLOOD CHEMISTRY, NOS Feb 22, 2015 Inactive ELEVATED LIVER ENZYMES Feb 22, 2015 Active ABDOMINAL PAIN, RIGHT UPPER QUADRANT Jun 15, 2015 Active Procedures Date Description Comments Aug 25, 2013 smoking status never smoker Feb 08, 2015 smoking status Never smoker Medications Medication Instructions Start Date Status PREDNISONE 10 MG TABS 3 tablet daily Feb 08, 2015 Inactive RANITIDINE HCL 150 MG TABS 1 po BID x 10 days Jun 15, 2015 Active Vital Signs Date Description Test Result Aug 25, 2013 weight Jacinta&M - 3141-9 WEIGHT 163 lb Aug 25, [...] 2015 temperature E&M TEMPERATURE 98.6 deg f Mar 01, 2015 temperature E&M TEMPERATURE 97.7 deg f Mar 01, 2015 weight E&M - 3141-9 WEIGHT 165 lb Mar 01, 2015 blood pressure, systolic - 8480-6 BP SYSTOLIC 115 mm Hg Mar 01, 2015 blood pressure, diastolic - 8462-4 BP DIASTOLIC 76 mm Hg Mar 01, 2015 pulse rate E&M - 8867-4 PULSE RATE 70 /min Mar 01, 2015 height E&M - 8302-2 HEIGHT 67 in Jun 15, 2015 height E&M - 8302-2 HEIGHT 67 in Jun 15, 2015 weight E&M - 3141-9 WEIGHT 162.8 lb Jun 15, 2015 temperature E&M TEMPERATURE 98.1 deg f Jun 15, 2015 blood pressure, systolic - 8480-6 BP SYSTOLIC 112 mm Hg Jun 15, 2015 blood pressure, diastolic - 8462-4 BP DIASTOLIC 74 mm Hg Jun 15, 2015 pulse rate E&M - 8867-4 PULSE RATE 70 /min Results Date Description Test Name Value [...] count PLATELETS 147 K/CMM /mm3 133-450 Feb 24, 2015 hemoglobin, blood HGB 14.3 g/dL 14.0-18.0 Feb 24, 2015 hematocrit, blood HCT 42.4 % 42.0-54.0 Feb 24, 2015 platelet count PLATELETS 165 K/CMM /mm3 133-450 Feb 20, 2015 urine [...] stimulating hormone, serum TSH 2.010 uIU/mL 0.360-3.740 Jun 15, 2015 sodium, serum SODIUM 140 MEQ/L mmol/L 135-145 Jun 15, 2015 potassium, serum POTASSIUM 3.9 MEQ/L mmol/L 3.5-5.1 Jun 15, 2015 creatinine, serum CREATININE 0.9 mg/dL 0.5-1.4 Jun 15, 2015 urea nitrogen, blood BUN 11 mg/dL 7-22 Jun 15, 2015 urea nitrogen/creatinine ratio, serum BUN/CREAT 12 null 6-25 Jun 15, 2015 albumin, serum ALBUMIN 4.0 g/dL 3.5-5.0 Jun 15, 2015 calcium, serum CALCIUM 9.3 mg/dL 8.5-10.5 Jun 15, 2015 alanine aminotransferase (SGPT), serum SGPT (ALT) 46 U/L 0-65 Jun 15, 2015 aspartate aminotransferase (SGOT), serum SGOT (AST) 20 U/L 0-37 Jun 15, 2015 alkaline phosphatase, serum ALK PHOS 91 U/L 39-136 Aug 26, 2013 sodium, serum SODIUM 139 MEQ/L mmol/L 135-145 Aug 26, 2013 potassium, serum POTASSIUM 3.8 MEQ/L mmol/L 3.5-5.1 Aug 26, 2013 creatinine, serum CREATININE 0.9 mg/dL 0.5-1.4 Aug 26, 2013 urea nitrogen, blood BUN 13 mg/dL 7-Aug 26, 2013 urea nitrogen/creatinine ratio, serum BUN/CREAT 14 null 6-Aug 26, 2013 albumin, serum ALBUMIN 4.2 g/dL [...] stimulating hormone, serum TSH 2.010 uIU/mL 0.360-3.740 Feb 24, 2015 sodium, serum SODIUM 138 MEQ/L mmol/L 135-145 Feb 24, 2015 potassium, serum POTASSIUM 4.6 MEQ/L mmol/L 3.5-5.1 Feb 24, 2015 creatinine, serum CREATININE 0.9 mg/dL 0.5-1.4 Feb 24, 2015 urea nitrogen, blood BUN 10 mg/dL -Feb 24, 2015 urea nitrogen/creatinine ratio, serum BUN/CREAT 11 null -Feb 24, 2015 albumin, serum ALBUMIN 3.6 g/dL 3.5-5.0 Feb 24, 2015 calcium, serum CALCIUM 9.2 mg/dL 8.5-10.5 Feb 24, 2015 alanine aminotransferase (SGPT), serum SGPT (ALT) 241 U/L 0-65 High Feb 24, 2015 aspartate aminotransferase (SGOT), serum SGOT (AST) 89 U/L 0-37 High Feb 24, 2015 alkaline phosphatase, serum ALK PHOS 457 U/L 39-136 High Mar 03, 2015 sodium, serum SODIUM 140 MEQ/L mmol/L 135-145 Mar 03, 2015 potassium, serum POTASSIUM 4.2 MEQ/L mmol/L 3.5-5.1 Mar 03, 2015 creatinine, serum CREATININE 1.2 mg/dL 0.5-1.4 Mar 03, 2015 urea nitrogen, blood BUN 12 mg/dL -Mar 03, 2015 urea nitrogen/creatinine ratio, serum BUN/CREAT 10 null -Mar 03, 2015 albumin, serum ALBUMIN 3.7 g/dL 3.5-5.0 Mar 03, 2015 calcium, serum CALCIUM 8.9 mg/dL 8.5-10.5 Mar 03, 2015 alanine aminotransferase (SGPT), serum SGPT (ALT) 105 U/L 0-65 High Mar 03, 2015 aspartate aminotransferase (SGOT), serum SGOT (AST) 41 U/L 0-37 High Mar 03, 2015 alkaline phosphatase, serum ALK PHOS 218 U/L 39-136 High Jun 15, 2015 sodium, serum SODIUM 140 MEQ/L mmol/L 135-145 Jun 15, 2015 potassium, serum POTASSIUM 3.9 MEQ/L mmol/L 3.5-5.1 Jun 15, 2015 creatinine, serum CREATININE 0.9 mg/dL 0.5-1.4 Jun 15, 2015 urea nitrogen, blood BUN 11 mg/dL 7-Jun 15, 2015 urea nitrogen/creatinine ratio, serum BUN/CREAT 12 null 6-25 Jun 15, 2015 albumin, serum ALBUMIN 4.0 g/dL 3.5-5.0 Jun 15, 2015 calcium, serum CALCIUM 9.3 mg/dL 8.5-10.5 Jun 15, 2015 alanine aminotransferase (SGPT), serum SGPT (ALT) 46 U/L 0-65 Jun 15, 2015 aspartate aminotransferase (SGOT), serum SGOT (AST) 20 U/L 0-37 Jun 15, 2015 alkaline phosphatase, serum ALK PHOS 91 U/L 39-136
--- OUTSIDE RECORDS SUMMARY | 2019-04-16 12:26 | XMS REPORT | Continuity of Care Document ---
Author Author [facility] Organization [facility] Address Unknown Phone Unavailable Care Team Providers Care Forklift Wheel Loader Name Role Phone Lela Dennison MD, Gilberto PP Unavailable Insurance Providers Payer name Policy type / Coverage type Policy ID Covered constitution party ID Policy Rooney *SELF PAY* SLIDING [...] Date Lab Report Jaya Vogel Jr., MD [facility] Jun 15, 2015 Problems Problem Effective Dates [...]
--- OUTSIDE RECORDS SUMMARY | 2019-04-16 12:27 | XMS REPORT | Continuity of Care Document ---
Author Author [facility] Organization [facility] Address Unknown Phone Unavailable Care Team Providers Care Waste Oil Pumper Name Role Phone Lela Dennison MD, Jaya [...] Date Lab Report Jaya Vogel Jr., MD [facility] Feb 24, 2015 Problems Problem Effective Dates Problem Status [...] urea nitrogen, blood BUN 10 mg/dL 7-Feb 24, 2015 urea nitrogen/creatinine ratio, serum BUN/CREAT 11 null 6-25 Feb 24, 2015 albumin, serum ALBUMIN 3.6 g/dL 3.5-5.0 Feb 24, 2015 calcium, serum CALCIUM 9.2 mg/dL 8.5-10.5 Feb 24, 2015 alanine aminotransferase (SGPT), serum SGPT (ALT) 241 U/L 0-65 High Feb 24, 2015 aspartate aminotransferase (SGOT), serum SGOT (AST) 89 U/L 0-37 High Feb 24, 2015 alkaline phosphatase, serum ALK PHOS 457 U/L 39-136 High
--- OUTSIDE RECORDS SUMMARY | 2019-04-16 12:27 | XMS REPORT | Summary of Care ---
Author Author [facility] Primary Care [facility] [place] Address Unknown Phone Unavailable Encounter HQ Syl(FIN) [id number] Date(s): 03/05/18 - 03/05/18 [facility] [place] [address], [place] [address]- [phone] Discharge Disposition: Home or Self Care Attending Physician: Jaya Brown MD Referring Physician: Jaya Brown MD Vital Signs Most recent to 1 oldest [Reference Range]: Height 170.18 cm (03/05/18 10:13 AM) Temperature Oral 98 DegF [96.4-99.1 DegF] (03/05/18 10:13 AM) Blood Pressure 126/83 mmHg [90-140/60-90 mmHg] (03/05/18 10:13 AM) Weight 76.818 kg (03/05/18 10:13 AM) Body Mass Index 26.52 m2 (03/05/18 10:13 AM) Problem List Condition Effective Dates Status Health Status Informant Abdominal bloating1 02/20/15 Active Disorders of 09/01/13 Active bilirubin excretion2 Fatigue3 08/25/13 Active Finding of frequency 02/20/15 Active of urination4 Hematoma5 08/25/13 Active Right upper quadrant 06/15/15 Active pain6 1Data migrated from [employer] on 06/07/15. 2Data migrated from [employer] on 05/02/15. 3Data migrated from [employer] on 05/02/15. 4Data migrated from [employer] on 06/07/15. 5Data migrated from [employer] on 05/02/15. 6Data migrated from [employer] on 07/05/15. Allergies, Adverse Reactions, Alerts Substance Reaction Severity Status NKDA Active Medications albuterol 90 mcg/inh inhalation aerosol 2 puff, INHALATION, TID, # 51 mg, 2 Refill(s), Pharmacy: [facility] [id number] Start Date: 03/05/18 Stop Date: 06/03/18 Status: Ordered Results No data available for this section Immunizations No data available for this section Procedures Procedure Date Related Diagnosis Body Site Status Appendectomy Completed Social History Social History Type Response Substance Abuse Use: None. Exercise 1 Alcohol Current, Frequency: Daily.2 Smoking Status Current every day smoker; Type: Cigarettes; Exposure to Tobacco Smoke None; Cigarette Smoking Last 365 Days Yes; Reg Smoking Cessation Counseling Yes; Tobacco use per day: 6; entered on: 03/05/18 1none 23-4 beers daily Assessment and Plan No data available for this section
--- OUTSIDE RECORDS SUMMARY | 2019-04-16 12:27 | XMS REPORT | CCD ---
Author Author Auto Generated Organization [facility] Address Unknown Phone Unavailable Care Team Providers Care Senior Mainframe Developer Name Role Phone Jaya Vogel CP Unavailable Results Radiology Reports Exam Date Time Procedure Performing Provider Status 10/02/2016 11:35:56 XR Foot 2 Views Right [id number] Chey Shepherd; David (Verified) Notes: (XR Foot 2 Views Right [id number]) Reason For Exam: RIGHT FOOT PAIN FINAL REPORT EXAM DESCRIPTION: Right foot, two views,10/02/2016 CLINICAL HISTORY: 31 y/o M Right foot pain Today, the patient reports medial right foot pain with some bruising and swellin g after a soccer injury on the previous day. COMPARISON: None FINDINGS: No osseous abnormalities or radiopaque foreign body is seen about the right foot . IMPRESSION: Normal study. Electronically signed by: Tenzin Tidwell MD 10/02/2016 12:06 Final Dictated by: Tenzin Tidwell MD Dictated DT/TM: 10/02/2016 12:06 pm Signed by: Tenzin Tidwell MD Signed (Electronic Signature): 10/02/2016 12:06 pm Transcribed by: MAYANK Procedures Procedures Date Related Diagnosis Radiologic examination, foot; 2 views 10/02/2016 00:00:00
--- OUTSIDE RECORDS SUMMARY | 2019-04-16 12:27 | XMS REPORT | Continuity of Care Document ---
Author Author [facility] Organization [facility] Address Unknown Phone Unavailable Care Team Providers Care Claims Correspondence Clerk Name Role Phone Lela Dennison MD, Jaya [...] Date Lab Report Jaya Vogel Jr., MD [facility] Mar 03, 2015 Problems Problem Effective Dates Problem Status [...] height E&M - 8302-2 HEIGHT 67 in Results Date Description Test Name Value Reference [...] nitrogen, blood BUN 10 mg/dL 7-22 Feb 24, 2015 urea nitrogen/creatinine ratio, serum BUN/CREAT [...] 2015 urea nitrogen, blood BUN 12 mg/dL 7-Mar 03, 2015 urea nitrogen/creatinine ratio, serum BUN/CREAT 10 null 6-25 Mar 03, 2015 albumin, serum ALBUMIN 3.7 g/dL 3.5-5.0 Mar 03, 2015 calcium, serum CALCIUM 8.9 mg/dL 8.5-10.5 Mar 03, 2015 alanine aminotransferase (SGPT), serum SGPT (ALT) 105 U/L 0-65 High Mar 03, 2015 aspartate aminotransferase (SGOT), serum SGOT (AST) 41 U/L 0-37 High Mar 03, 2015 alkaline phosphatase, serum ALK PHOS 218 U/L 39-136 High
--- OUTSIDE RECORDS SUMMARY | 2019-04-16 12:27 | XMS REPORT | Summary of Care ---
Author Author [facility] Organization [facility] Address Unknown Phone Unavailable Encounter REINALDO Streeter(ALMA DELIA) [id number] Date(s): 11/12/17 - 11/13/17 [facility] [address] [place] [address]- [phone] Discharge Diagnosis: Viral illness Discharge Disposition: Home or Self Care Attending Physician: Mike Rivera MD Vital Signs Most recent to 1 2 oldest [Reference Range]: Height 170.18 cm (11/12/17 8:41 PM) Temperature Oral 97.8 DegF 98.1 DegF [96.4-99.1 DegF] (11/13/17 2:23 AM) (11/12/17 8:41 PM) Blood Pressure 136/86 mmHg 132/89 mmHg [90-140/60-90 mmHg] (11/13/17 2:23 AM) (11/12/17 8:41 PM) Respiratory Rate 16 BRMIN 20 BRMIN [14-20 BRMIN] (11/13/17 2:23 AM) (11/12/17 8:41 PM) Peripheral Pulse 56 bpm 70 bpm Rate [60-100 bpm] *LOW* (11/12/17 8:41 PM) (11/13/17 2:23 AM) Weight 79.545 kg (11/12/17 8:41 PM) Body Mass Index 27.47 m2 (11/12/17 8:41 PM) Problem List Condition Effective Dates Status Health [...] Substance Reaction Severity Status NKDA Active Medications ketOROLAC 30 mg, Route: IVP, Drug form: INJ, ONCE, Dosing Weight 79.545, kg, Priority: STA T, Start date: 11/12/17 23:41:00 [employer], Stop date: 11/12/17 23:41:00 [employer] Start Date: 11/12/17 Stop Date: 11/13/17 Status: Completed Results ELECTROLYTES Most recent to 1 oldest [Reference Range]: Sodium Lvl [135-145 140 mEq/L mEq/L] (11/12/17 10:40 PM) Potassium Lvl 3.3 mEq/L [3.5-5.1 mEq/L] *LOW* (11/12/17 10:40 PM) Chloride Lvl [95-109 103 mEq/L mEq/L] (11/12/17 10:40 PM) CO2 [24-32 mEq/L] 29 mEq/L (11/12/17 10:40 PM) AGAP [10.0-20.0 11.3 mEq/L mEq/L] (11/12/17 10:40 PM) CHEM PANEL Most recent to 1 oldest [Reference Range]: Creatinine Lvl 0.93 mg/dL [0.50-1.40 mg/dL] (11/12/17 10:40 PM) eGFR 107 mL/min/1.73m2 1 *NA* (11/12/17 10:40 PM) BUN [7-22 mg/dL] 14 mg/dL (11/12/17 10:40 PM) B/C Ratio [6-25] 15 (11/12/17 10:40 PM) Glucose Lvl [70-99 106 mg/dL mg/dL] *HI* (11/12/17 10:40 PM) Total Protein 7.9 g/dL [6.4-8.4 g/dL] (11/12/17 10:40 PM) Albumin Lvl [3.5-5.0 4.3 g/dL g/dL] (11/12/17 10:40 PM) Globulin [2.7-4.2 3.6 g/dL g/dL] (11/12/17 10:40 PM) A/G Ratio [0.7-1.6] 1.2 (11/12/17 10:40 PM) Calcium Lvl 9.3 mg/dL [8.5-10.5 mg/dL] (11/12/17 10:40 PM) ALT [0-65 unit/L] 72 unit/L *HI* (11/12/17 10:40 PM) AST [0-37 unit/L] 30 unit/L (11/12/17 10:40 PM) Alk Phos [39-136 110 unit/L unit/L] (11/12/17 10:40 PM) Bili Total [0.2-1.3 1.2 mg/dL mg/dL] (11/12/17 10:40 PM) Lipase Lvl [73-393 125 unit/L unit/L] (11/12/17 10:40 PM) 1Result Comment: The eGFR is calculated using the [...] from the National Kidney Disease Education Program ( NKDEP) which additionally recommends that when the eGFR is used in patients with extremes of body mass index for purposes of drug dosing, the eGFR should be mul tiplied by the estimated BMI. URINE AND STOOL Most recent to 1 oldest [Reference Range]: UA Turbidity [Clear] Moderate *ABN* (11/12/17 10:40 PM) UA Color Yellow *NA* (11/12/17 10:40 PM) UA pH [5.0-8.0] 6.0 (11/12/17 10:40 PM) UA Spec Grav 1.021 [<=1.030] (11/12/17 10:40 PM) UA Glucose [Negative Negative mg/dL mg/dL] *NA* (11/12/17 10:40 PM) UA Blood [Negative] Negative (11/12/17 10:40 PM) UA Ketones [Negative Negative mg/dL mg/dL] *NA* (11/12/17 10:40 PM) UA Protein [Negative Negative mg/dL mg/dL] (11/12/17 10:40 PM) UA Urobilinogen 2.0 mg/dL [0.1-1.0 mg/dL] *HI* (11/12/17 10:40 PM) UA Bili [Negative] Negative *NA* (11/12/17 10:40 PM) UA Leuk Est Negative [Negative] (11/12/17 10:40 PM) UA Nitrite Negative [Negative] (11/12/17 10:40 PM) UA Sq Epi None Seen *NA* (11/12/17 10:40 PM) UA Amorph Kylie [None Few /HPF Seen /HPF] *NA* (11/12/17 10:40 PM) UA Mucus [None Seen Few /LPF /LPF] *NA* (11/12/17 10:40 PM) HEMATOLOGY Most recent to 1 oldest [Reference Range]: WBC [3.7-10.4 K/CMM] 9.6 K/CMM (11/12/17 10:40 PM) RBC [4.70-6.10 5.37 M/CMM M/CMM] (11/12/17 10:40 PM) Hgb [14.0-18.0 g/dL] 16.4 g/dL (11/12/17 10:40 PM) Hct [42.0-54.0 %] 48.0 % (11/12/17 10:40 PM) MCV [80.0-94.0 fL] 89.3 fL (11/12/17 10:40 PM) MCH [27.0-31.0 pg] 30.5 pg (11/12/17 10:40 PM) MCHC [32.0-36.0 34.1 g/dL g/dL] (11/12/17 10:40 PM) RDW [11.5-14.5 %] 12.8 % (11/12/17 10:40 PM) Platelet [133-450 226 K/CMM K/CMM] (11/12/17 10:40 PM) MPV [7.4-10.4 fL] 9.7 fL (11/12/17 10:40 PM) Segs [45.0-75.0 %] 54.2 % (11/12/17 10:40 PM) Lymphocytes 36.8 % [20.0-40.0 %] (11/12/17 10:40 PM) Monocytes [2.0-12.0 7.3 % %] (11/12/17 10:40 PM) Eosinophils [0.0-4.0 1.4 % %] (11/12/17 10:40 PM) Basophils [0.0-1.0 0.3 % %] (11/12/17 10:40 PM) Segs-Bands # 5.2 K/CMM [1.5-8.1 K/CMM] (11/12/17 10:40 PM) Lymphocytes # 3.6 K/CMM [1.0-5.5 K/CMM] (11/12/17 10:40 PM) Monocytes # [0.0-0.8 0.7 K/CMM K/CMM] (11/12/17 10:40 PM) Eosinophils # 0.1 K/CMM [0.0-0.5 K/CMM] (11/12/17 10:40 PM) Basophils # [0.0-0.2 0.0 K/CMM K/CMM] (11/12/17 10:40 PM) RAPID Most recent to 1 oldest [Reference Range]: Grp A Strep Scr Negative [Negative] (11/13/17 1:26 AM) VIRAL - SEROLOGY Most recent to 1 oldest [Reference Range]: Influ A [Negative] Negative (11/13/17 1:26 AM) Influ B [Negative] Negative (11/13/17 1:26 AM) Immunizations No data available for this section Procedures Procedure Date Related Diagnosis Body Site Appendectomy Social History Social History Type Response Substance Abuse Use: None. Exercise 1 Alcohol Current, Frequency: Daily.2 Smoking Status Current every day smoker; Type: Cigarettes; Exposure to Tobacco Smoke None; Cigarette Smoking Last 365 Days Yes; Reg Smoking Cessation Counseling Yes; Tobacco use per day: 6; 1none 23-4 beers daily Assessment and Plan No data available for this section
--- OUTSIDE RECORDS SUMMARY | 2019-04-16 12:27 | XMS REPORT | CCD ---
Author Author Auto Generated Organization [facility] [place] Address Unknown Phone Unavailable Care Team Providers Care Private Branch Exchange Service Adviser Name Role Phone Jaya Vogel CP Unavailable Results Radiology Reports Exam Date Time Procedure Performing Provider Status 08/04/2015 12:35:41 US Abdomen Limited [id number] Merle Quintanilla; Auth (Verified) Notes: (US Abdomen Limited [id number]) Reason For Exam: RUQ PAIN FINAL REPORT EXAM DESCRIPTION: Right upper quadrant abdominal ultrasound,08/04/2015 CLINICAL HISTORY: 789.01 right upper quadrant abdominal pain COMPARISON: None FINDINGS: The gallbladder appears normal. No gallstones are seen. The common duct diameter is 0.4 cm, within normal limits. The technologist reports that the patient was not tender when compressed over the gallbladder. The liver is normal in size and echogenicity. Duplex Doppler scanning shows the portal vein is patent with flow directed normally, toward the liver. The right kidney is normal in contour and echogenicity, measuring 9.7 cm in chaya th. No calculus, hydronephrosis, mass or perinephric collection is seen. The abdominal aorta and visualized portions of the pancreatic head and neck and inferior vena cava appear normal. IMPRESSION: Normal study. Electronically signed by: Tenzin Nelson 08/04/2015 14:18 Final Dictated by: Tenzin Tidwell MD Dictated DT/TM: 08/04/2015 2:18 pm Signed by: Tenzin Tidwell MD Signed (Electronic Signature): 08/04/2015 2:18 pm Transcribed by: MAYANK Exam Date Time Procedure Performing Provider Status 08/04/2015 12:06:28 US Abdomen Complete [id number] Merle Quintanilla; Auth (Verified) Notes: (US Abdomen Complete [id number]) Reason For Exam: RUQ PAIN FINAL REPORT EXAM DESCRIPTION: Right upper quadrant abdominal ultrasound,08/04/2015 CLINICAL HISTORY: 789.01 right upper quadrant abdominal pain COMPARISON: None FINDINGS: The gallbladder appears normal. No gallstones are seen. The common duct diameter is 0.4 cm, within normal limits. The technologist reports that the patient was not tender when compressed over the gallbladder. The liver is normal in size and echogenicity. Duplex Doppler scanning shows the portal vein is patent with flow directed normally, toward the liver. The right kidney is normal in contour and echogenicity, measuring 9.7 cm in chaya th. No calculus, hydronephrosis, mass or perinephric collection is seen. The abdominal aorta and visualized portions of the pancreatic head and neck and inferior vena cava appear normal. IMPRESSION: Normal study. Electronically signed by: Tenzin Nelson 08/04/2015 12:31 Final Dictated by: Tenzin Tidwell MD Dictated DT/TM: 08/04/2015 12:31 pm Signed by: Tenzin Tidwell MD Signed (Electronic Signature): 08/04/2015 12:31 pm Transcribed by: MAYANK
--- OUTSIDE RECORDS SUMMARY | 2019-04-16 12:27 | XMS REPORT | Continuity of Care Document ---
Author Author [facility] Organization [facility] Address Unknown Phone Unavailable Care Team Providers Care Key Bed Installer Name Role Phone Lela Dennison MD, Jaya [...] Date Office Visit Jaya Vogel Jr., MD [facility] Mar 01, 2015 Problems Problem Effective Dates Problem Status [...] urea nitrogen/creatinine ratio, serum BUN/CREAT 11 null 6-Feb 24, 2015 albumin, serum ALBUMIN 3.6 g/dL 3.5-5.0 Feb 24, 2015 calcium, serum CALCIUM 9.2 mg/dL 8.5-10.5 Feb 24, 2015 alanine aminotransferase (SGPT), serum SGPT (ALT) 241 U/L 0-65 High Feb 24, 2015 aspartate aminotransferase (SGOT), serum SGOT (AST) 89 U/L 0-37 High Feb 24, 2015 alkaline phosphatase, serum ALK PHOS 457 U/L 39-136 High
--- OUTSIDE RECORDS SUMMARY | 2019-04-16 12:27 | XMS REPORT | Continuity of Care Document ---
Author Author [facility] Organization [facility] Address Unknown Phone Unavailable Care Team Providers Care Full Fashioned Garment Knitter Name Role Phone Lela Dennison MD, Jaya [...] Date Office Visit Jaya Vogel Jr., MD [facility] Feb 20, 2015 Problems Problem Effective Dates Problem Status FATIGUE Aug 25, 2013 Active HEMATOMA Aug 25, 2013 Inactive DISORDERS OF BILIRUBIN EXCRETION Sep 01, 2013 Active FEVER UNSPECIFIED Sep 07, 2014 Inactive OTHER SPECIFIED VIRAL INFECTION IN CONDITIONS CLASSIFIED ELSEWHERE AND OF UNSPECIFIED SITE Feb 08, 2015 Inactive FREQUENCY, URINARY Feb 20, 2015 Active ABDOMINAL BLOATING Feb 20, 2015 Active Procedures Date Description Comments Aug [...]
--- OUTSIDE RECORDS SUMMARY | 2019-04-16 12:27 | XMS REPORT | Summary of Care ---
Author Author [facility] Organization [facility] Address Unknown Phone Unavailable Encounter [facility] Chakantr_helio(FIN) [id number] Date(s): 03/02/18 - 03/03/18 [facility] [place] [address], [place] [address]- [phone] Vital Signs No data available for this section Problem List Condition Effective Dates Status Health [...] Substance Reaction Severity Status NKDA Active Medications No data available for this section Results No data available for this section [...]
--- OUTSIDE RECORDS SUMMARY | 2019-04-16 12:27 | XMS REPORT | Summary of Care ---
Author Author [facility] Organization [facility] Address Unknown Phone Unavailable Encounter [facility] [address] Date(s): 05/07/17 - 05/07/17 [facility] [address] [facility] [place] [address] Final: Pain in thoracic spine Discharge Disposition: Discharged to Home or Self Care Attending Physician: Jaya Vogel MD Admitting Physician: Jaya Vogel MD Vital Signs No data available for this section Problem List No data available for this section Allergies, Adverse Reactions, Alerts No data available for this section Medications No data available for this section Results No data available for this section Immunizations No data available for this section Procedures No data available for this section Social History No data available for this section Assessment and Plan No data available for this section
--- OUTSIDE RECORDS SUMMARY | 2019-04-16 12:27 | XMS REPORT | Summary of Care ---
Author Author [facility] Primary [facility] Address Unknown Phone Unavailable Encounter REINALDO Streeter(ALMA DELIA) [id number] Date(s): 01/08/18 - 01/08/18 [facility] [place] [address], [place] [address] [phone] Discharge Disposition: Home or Self Care Attending Physician: Jaya Brown MD Referring Physician: Jaya Brown MD Vital Signs Most recent to 1 oldest [Reference Range]: Temperature Oral 98.1 DegF [96.4-99.1 DegF] (01/08/18 11:32 AM) Blood Pressure 124/75 mmHg [90-140/60-90 mmHg] (01/08/18 11:32 AM) Weight 77.727 kg (01/08/18 11:32 AM) Problem List Condition Effective Dates Status [...] Substance Reaction Severity Status NKDA Active Medications ALPRAZOLam 0.5 mg oral tablet 0.5 mg=1 tab, PO, Daily, PRN Anxiety, X 30 day, # 24 tab, 0 Refill(s) Start Date: 01/08/18 Stop Date: 02/07/18 Status: Completed Results No data available for this section [...] use per day: 6; entered on: 03/05/18 1nzac 23-4 beers daily Assessment and Plan No data available for this section
[2019-04-16 13:08] VITALS: BP 134/76
== END 2019-04-16 13:17 | disposition home or self-care (01) ==
LOC: ER 12:22
DX: R00.2 Palpitations (principal)
CPT/HCPCS: 93005; 99283